=== PATIENT | male | born 1970 | race African-American/Black ===

== ENCOUNTER 2021-07-08 07:57 | Emergency (ER) | payer MEDICAID, MEDICARE ==
[~2021-07-08] VITALS: Ht 180.3 cm; Wt 73.0 kg
[2021-07-08 08:02] VITALS: BP 105/35
[2021-07-08] MEDS ORDERED: AMOXICILLIN/POTASSIUM CLAVULANATE 875/125MG TAB PO ONE (08:30)
[2021-07-08] MEDS ORDERED: IBUPROFEN 600MG TABLET PO ONE (08:30)
[2021-07-08] MEDS ORDERED: TETANUS, DIPHTHERIA, PERTUSSIS VAC/PF 0.5ML (>10YR OLD) IM ONE (08:30)
[2021-07-08] MEDS ORDERED: NAPR-681 MT (09:52)
[2021-07-08] MEDS ORDERED: AMOX-424 MT (09:52)
[2021-07-08] MEDS ORDERED: ALBU6.7H9 INH (09:52)
== END 2021-07-08 10:06 | disposition home or self-care (01) ==
LOC: ER 07:57
DX: S60.221A Contusion of right hand, initial encounter (principal); J45.909 Unspecified asthma, uncomplicated; X58.XXXA Exposure to other specified factors, initial encounter; Y93.89 Activity, other specified; Y92.89 Other specified places as the place of occurrence of the external cause; Y99.8 Other external cause status
CPT/HCPCS: 73130; 90471; 90715; 99283

== ENCOUNTER 2024-12-15 02:16 | Emergency (ER) | payer BC, MEDICAID ==
[~2024-12-15] VITALS: Ht 180.3 cm; Wt 75.0 kg
[~2024-12-15 02:16] MED LIST: ALBU6.7H3 INH; AMOX-424 MT; NAPR-681 MT
[2024-12-15 02:45] VITALS: O2SAT 98
[2024-12-15 02:50] VITALS: TEMP 36.9; O2SAT 98
[2024-12-15 03:45] VITALS: BP 93/51; PULSE 62; RESP 15
[2024-12-15] MEDS: KETOROLAC 15MG/ML VIAL IM ONE (03:45)
[2024-12-15] MEDS: LIDOCAINE 5% PATCH TOP SCH (03:45)
[2024-12-15] MEDS ORDERED: LIDO-53 TP (05:09)
[2024-12-15] MEDS ORDERED: NAPR-1176 MT (05:09)
[2024-12-15] MEDS ORDERED: CYCL5TAB3 MT (05:09)
== END 2024-12-15 05:29 | disposition home or self-care (01) ==
LOC: ER 02:16
DX: M54.50 Low back pain, unspecified (principal); J45.909 Unspecified asthma, uncomplicated; Z79.1 Long term (current) use of non-steroidal anti-inflammatories (NSAID); Z79.899 Other long term (current) drug therapy
CPT/HCPCS: 99285; 72131; 96372; J1885